=== PATIENT | male | born 1980 | race African-American/Black ===

== ENCOUNTER 2019-05-04 14:54 | Emergency (ER) | payer SELFPAY ==
[~2019-05-04] VITALS: Ht 180.3 cm; Wt 109.1 kg
[2019-05-04 18:23] VITALS: BP 127/85
== END 2019-05-04 18:30 | disposition home or self-care (01) ==
LOC: EMS 14:58
DX: F10.10 Alcohol abuse, uncomplicated (principal); I10 Essential (primary) hypertension; F12.90 Cannabis use, unspecified, uncomplicated; Y90.9 Presence of alcohol in blood, level not specified